=== PATIENT | female | born 1955 | race Caucasian/White ===

== ENCOUNTER 2018-08-08 01:04 | Emergency (ER) | payer BC, SELFPAY ==
[2018-08-08 01:05] VITALS: BP 208/87; PULSE 80; RESP 14; TEMP 36.4; O2SAT 99; BMI 32.1
--- NOTE | 2018-08-08 01:29 | CT_ITS ---
STUDY: CT ABDOMEN AND PELVIS WITHOUT CONTRAST REASON FOR EXAM: Female, 62 years old. Left-sided flank pain. RADIATION DOSAGE (If Supplied By Facility): CTDIvol = ( 15.80 ) mGy, DLP = ( 785.33 ) mGycm TECHNIQUE: Transaxial images were obtained from the dome of the diaphragm to the symphysis pubis without oral contrast, and without intravenous contrast. Sagittal and coronal images were reconstructed. Individualized dose optimization techniques were used for this CT. COMPARISON: None. FINDINGS: The visualized lung bases are unremarkable. The visualized portions of the heart are within normal limits. Normal liver. Normal gallbladder and extrahepatic biliary system. Normal spleen. Normal pancreas. Normal bilateral adrenal glands. Normal right kidney. There is prominence of the left renal collecting system without evidence for hydroureter or radiopaque ureteral calculus. This may be the result of recent passage of a calculus. Small calculus is visible within the urinary bladder. Normal visualized stomach. There is no evidence for dilated bowel, ascites or pneumoperitoneum. Small bowel has a grossly normal appearance. Stool is visible throughout the colon with scattered diverticula. There is non-visualization of the appendix. Normal abdominal aorta. Normal inferior vena cava. Normal retroperitoneum. The urinary bladder has a normal appearance otherwise. Normal visualized uterus. There is a small umbilical hernia containing fat. There are degenerative changes of the lumbar spine. There are degenerative changes of both hips. CT/Abdomen/Pelvis without Cont IMPRESSION: 1. Mild prominence of left renal collecting system with calculus in urinary bladder suggests recent passage of a ureteral calculus. 2. Colonic diverticulosis. Electronically Signed: Yanely Kay MD at 2:52 EDT , Service support ,
--- NOTE | 2018-08-08 01:32 | ED.DCSUM_ITS ---
- ER Visit Summary Date of Service: 08/08/18 Chief Complaint: Left flank pain History of Present Illness: The patient is a 62 F presenting with left flank pain. Patient states this started today. She states yesterday she went to urgent care for a bladder infection. She was given a prescription for Macrobid. She then started having pain in her left lower back today. She has nausea and vomiting. She denies fever. Denies abdominal pain. Denies other complaints Physical Examination: Vitals are stable. Patient is afebrile. Alert no acute distress. HEENT exam is unremarkable. Neck is supple. Lungs are clear and equal bilaterally. Heart is regular rate and rhythm. Abdomen is soft nontender nondistended. No guarding or rebound Back: Mild left CVA tenderness Extremities are unremarkable. Skin is warm and dry. Remainder of exam is unremarkable. Emergency Department Course and Treatment: Patient was given IV fluids, morphine, Zofran. CT flank shows mild prominence of left renal collecting system with calculus in urinary bladder suggests recent passage of a ureteral calculus. Colonic diverticulosis. CBC normal except for white count 13.2. Chemistries showed glucose 161, BUN 20. Urinalysis shows 0-5 white blood cells, 5-10 red blood cells. Patient is advised to continue her antibiotics until complete. On reevaluation she is resting comfortably and is feeling improved. She is given a prescription for Zofran. Advised to follow-up with her primary care physician. Advised to return to the ED for worsening complaints. Disposition: Discharge home Impression: Urolithiasis This note was generated with [employer] dictation software. It may contain incorrect words, spelling, and punctuation that were not noted in review of the chart prior to signing ED Disposition - Plan for ED Patient: Instructions: ED Stone Renal W Colic Prescriptions: Ondansetron [Zofran Odt] 4 mg PO Q8H PRN PRN #10 tablet PRN Reason: Nausea Referrals: Jaden Grady MD [STAFF PHYSICIAN] -
[2018-08-08] MEDS: Ondansetron 4 MG/2 ML Vial IV (01:46)
[2018-08-08] MEDS: Morphine 4 MG/ML Syringe IV (01:47)
[2018-08-08 01:50] LABS: Mucous, Urine 0 SEEN /hpf (<or=2+)
[2018-08-08 01:53] LABS: Absolute Lymphocyte Count 2.13 X10^3/ul (0.83-4.51); Basophil# 0.03 X10^3/uL; Basophil% 0.2 % (0-1); Eosinophil# 0.08 X10^3/uL; Eosinophils% 0.6 % (0-5); Hematocrit 43.3 % (37-47); Hemoglobin 14.1 g/dl (12.0-15.0); Lymphocyte # 2.13 X10^3/ul (4.0); Lymphocyte % 16.1 % (19-41); Mean Corp Hgb Conc 32.6 g/gl (32-36); Mean Corpuscular Volume 82.8 fL (81-99); Mean Platelet Vol. 10.8 fl (6.2-12.0); Monocyte# 0.95 X10^3/uL; Monocyte% 7.2 % (0-10); Neutrophil # 10.02 X10^3/uL (2.7-7.7); Neutrophil % 75.7 % (47-70); Platelet Count 249 K/mm3 (150-450); RBC Distribution Width CV 12.3 % (11.6-14.6); RBC Distribution Width SD 37.1 fl (35.1-43.9); Red Blood Count 5.23 M/mm3 (4.2-5.4); White Blood Count 13.2 K/mm3 (4.4-11.0)
[2018-08-08 01:54] LABS: Glucose, Dipstick 50 mg/dl (Normal); Ketone-Dipstick 5 mg/dl (Negative); Leukocyte Esterase-Dipstick 25 /ul (Negative); Nitrite-Dipstick Positive (Negative); Occult Blood-Urine 50 /ul (Negative); Protein-Dipstick 30 mg/dl (Negative); Urine Clarity Sl. Cloudy (Clear); Urine Urobilinogen 8 mg/dl (Normal)
[2018-08-08 01:55] LABS: Color, Urine SEE COMMENT BELOW (Yellow); POSITIVE COUNT NO; POSITIVE DIFFERENTIAL NO; POSITIVE MORPHOLOGY NO; Urine Bilirubin Dipstick 3 mg/dL (Negative)
[2018-08-08 02:01] LABS: Bacteria RARE /hpf (None Seen); Red Blood Cells-Urine 5-10 SEEN /hpf (0-5); Squamous Epithelial Cells - UA 0-5 SEEN /hpf (5-10); White Blood Cells 0-5 SEEN /hpf (0-5)
[2018-08-08 02:07] LABS: Anion Gap 6 (5-15); BUN 20 mg/dL (7-18); BUN/Creat Ratio 28.5 RATIO (10-20); Chloride 107 mmol/L (98-107); EST Glomerular Filtration Rate 90 mL/min (>60); Est Glom Filt Rate - Afr Amer 109 mL/min (>60); Glucose 161 mg/dL (74-106); Potassium 3.6 mmol/L (3.5-5.1); Sodium Level 140 mmol/L (136-145)
--- NOTE | 2018-08-08 03:20 | ED.DEP ---
ED Disposition - Plan for ED Patient: Instructions: ED Stone Renal W Colic Prescriptions: Ondansetron [Zofran Odt] 4 mg PO Q8H PRN PRN #10 tablet PRN Reason: Nausea Referrals: Jaden Grady MD [STAFF PHYSICIAN] -
[2018-08-08 03:35] VITALS: BP 151/65; PULSE 84; RESP 16; O2SAT 95
== END 2018-08-08 03:36 | disposition home or self-care (01) ==
PROVIDERS: Emergency Provider Emergency Medicine; Family Provider Internal Medicine; PCP Internal Medicine
DX: N21.0 Calculus in bladder (principal); E11.9 Type 2 diabetes mellitus without complications; I10 Essential (primary) hypertension; E78.00 Pure hypercholesterolemia, unspecified; Z79.4 Long term (current) use of insulin; Z79.899 Other long term (current) drug therapy
CPT/HCPCS: 74176; 80048; 81001; 85025; 96361; 96374; 96375; 99283; J7040; A4216; J2405

== ENCOUNTER 2019-12-20 08:37 | Emergency (ER) | payer BC, SELFPAY ==
[2019-12-20 08:37] VITALS: BP 199/96; PULSE 71; RESP 16; TEMP 36.2; O2SAT 99; BMI 32.1
[2019-12-20 08:39] VITALS: BP 199/96; PULSE 71; RESP 16; TEMP 36.2; O2SAT 99
--- NOTE | 2019-12-20 08:49 | CT_ITS ---
STUDY: CT ABDOMEN AND PELVIS WITHOUT CONTRAST REASON FOR EXAM: Female, 64 years old. ABD PAIN/VOIMITING/NAUSEA/HEMATURIA. right flank pain RADIATION DOSAGE (If Supplied By Facility): CTDIvol = ( 13.49 ) mGy, DLP = ( 637.00 ) mGycm TECHNIQUE: Transaxial images were obtained from the dome of the diaphragm to the symphysis pubis without oral contrast, and without intravenous contrast. Sagittal and coronal images were reconstructed. Individualized dose optimization techniques were used for this CT. COMPARISON: None. FINDINGS: The visualized lung bases are unremarkable. The visualized portions of the heart are within normal limits. Normal liver. Normal gallbladder and extrahepatic biliary system. Normal spleen. Normal pancreas. Normal bilateral adrenal glands. Moderate right hydronephrosis and hydroureter due to 5 mm stone in distal right ureter at ureterovesical junction. Normal left kidney. Normal visualized stomach. Normal small intestine. There are multiple colonic diverticula consistent with diverticulosis. The appendix is visualized and appears normal. Normal abdominal aorta. Normal inferior vena cava. Normal retroperitoneum. Normal urinary bladder. Normal abdominal wall. Normal osseous structures. CT/Abdomen/Pelvis without Cont IMPRESSION: Moderate right hydronephrosis and hydroureter due to 5 mm stone in distal right ureter at ureterovesical junction. Electronically Signed: Lisa Hagen, at 9:54 EDT Tel , Service support ,
--- NOTE | 2019-12-20 08:50 | ED.VIS.GEN ---
History of Present Illness Chief Complaint: Abd Pain Informant: Patient Narrative: Patient presents with abdominal pain, hematuria, and nausea vomiting. Patient had bunion surgery on Monday. She states that she was put on Keflex and did experience some vomiting and some mid abdominal pain. She talk to her doctor due to multiple antibiotic allergies and was advised to stop the medication. She stopped it and states that the nausea vomiting did get better. However during this past night she developed pain in the suprapubic region and noticed some hematuria. Dry heaving resumed. No history of abdominal surgery or bowel obstruction or pancreatitis. She denies any prior history of diverticulitis. Normal bowel movements. 2019 was diagnosed with a kidney stone. She states her pain gets better with ambulation. Past Medical History - Allergies and Home Meds Allergies/Adverse Reactions: Allergies MULTIPLE ATB Adverse Reaction (Uncoded 12/20/19 08:39) Nausea Primary Care Physician: Terri Mancia MD [Primary Care Provider] - Smoking Status: Never smoker Review of Systems General: Denies: Chills, Fever, Sweats Eyes: Denies: Visual changes - bilaterally, Diplopia ENT: Denies: Rhinorrhea, Sore throat Cardiovascular: Denies: Chest pain, Palpitations Respiratory: Denies: Dyspnea, Cough, Dyspnea on exertion Gastrointestinal: Reports: Abdominal pain, Nausea, Vomiting. Denies: Diarrhea, Constipation, Melena, Hematochezia Genitourinary: Reports: Hematuria. Denies: Dysuria, Frequency Musculoskeletal: Denies: Back pain, Extremity Pain Skin: Denies: Rash, Wounds Neurological: Denies: Headache, Weakness, Numbness Physical Exam Vital Signs/Narrative: Vital Signs Temp Pulse Resp BP Pulse Ox 12/20/19 08:37 97.2 F L 71 16 199/96 H 99 Inital Vital Signs reviewed: Yes General: Well nourished, Well developed, Obese, No Acute Distress Head: Normocephalic, Atraumatic Eyes: Perrl, EOMI ENT: Moist mucous membranes, No rhinorrhea Neck: Supple, Nontender Cardiovascular: Regular rate, Regular rhythm, No murmurs Respiratory: No distress, CTA bilaterally, Chest nontender Abdomen: Soft, Nontender, Nondistended, Normal bowel sounds Back: Nontender, Normal Inspection Extremities: Nontender, No edema Skin: Normal color, No rash Neurological: Alert, Oriented x3, Cranial nerves II-XII grossly intact, Normal Strength, Normal Sensation Psychological: Normal affect, Normal Mood Diagnostic/Tx/Re-eval Clinical Impression(s) from Imaging Studies Abdomen/Pelvis CT 12/20/19 08:49 IMPRESSION: Moderate right hydronephrosis and hydroureter due to 5 mm stone in distal right ureter at ureterovesical junction. Electronically Signed: Lisa Hagen, at 9:54 EDT Tel , Service support , Laboratory Last Values WBC 10.3 K/mm3 (4.4-11.0) 12/20/19 08:54 RBC 5.22 M/mm3 (4.2-5.4) 12/20/19 08:54 Hgb 14.7 g/dL (12.0-15.0) 12/20/19 08:54 Hct 44.7 % (37-47) 12/20/19 08:54 MCV 85.6 fL (81-99) 12/20/19 08:54 MCH 28.2 pg (27.0-32.0) 12/20/19 08:54 MCHC 32.9 g/dL (32-36) 12/20/19 08:54 RDW Std Deviation 37.7 fl (35.1-43.9) 12/20/19 08:54 RDW Coeff of [place] 12.2 % (11.6-14.6) 12/20/19 08:54 Plt Count 272 K/mm3 (150-450) 12/20/19 08:54 MPV 10.9 fl (6.2-12.0) 12/20/19 08:54 Immature Gran % (Auto) 0.400 % (0.0-0.9) 12/20/19 08:54 Neut % (Auto) 78.8 % (47-70) H 12/20/19 08:54 Lymph % (Auto) 14.0 % (19-41) L 12/20/19 08:54 [place] % (Auto) 6.1 % (0-10) 12/20/19 08:54 Eos % (Auto) 0.4 % (0-5) 12/20/19 08:54 Baso % (Auto) 0.3 % (0-1) 12/20/19 08:54 Absolute Neuts (auto) 8.1 X10^3/uL (2.0-7.7) H 12/20/19 08:54 Absolute Lymphs (auto) 1.44 X10^3/uL (0.83-4.51) 12/20/19 08:54 Nucleated RBC % 0 % (0-5) 12/20/19 08:54 Sodium 140 mmol/L (136-145) 12/20/19 08:54 Potassium 3.6 mmol/L (3.5-5.1) 12/20/19 08:54 Chloride 106 mmol/L (98-107) 12/20/19 08:54 Carbon Dioxide 26.0 mmol/L (21.0-32.0) 12/20/19 08:54 Anion Gap 8 (5-15) 12/20/19 08:54 BUN 26 mg/dL (7-18) H 12/20/19 08:54 Creatinine 0.81 mg/dL (0.55-1.02) 12/20/19 08:54 Estim Creat Clear Calc 62.18 ml/min 12/20/19 08:54 Est GFR (MDRD) Af Amer 92 mL/min (>60) 12/20/19 08:54 Est GFR (MDRD) Non-Af 76 mL/min (>60) 12/20/19 08:54 BUN/Creatinine Ratio 32.0 RATIO (10-20) H 12/20/19 08:54 Glucose 216 mg/dL (74-106) H 12/20/19 08:54 Calcium 9.6 mg/dL (8.5-10.1) 12/20/19 08:54 Total Bilirubin 0.80 mg/dL (0.20-1.00) 12/20/19 08:54 AST 18 U/L (15-37) 12/20/19 08:54 ALT 24 U/L (13-56) 12/20/19 08:54 Alkaline Phosphatase 137 U/L (45-117) H 12/20/19 08:54 Total Protein 8.2 g/dL (6.4-8.2) 12/20/19 08:54 Albumin 3.7 g/dL (3.2-5.0) 12/20/19 08:54 Globulin 4.5 g/dL (2.2-4.2) H 12/20/19 08:54 Albumin/Globulin Ratio 0.8 RATIO (0.9-2.4) L 12/20/19 08:54 Lipase 56 U/L (73-393) L 12/20/19 08:54 Urine Color Yellow (Yellow) 12/20/19 09:15 Urine Clarity Clear (Clear) 12/20/19 09:15 Urine pH 5.0 (5.0 - 8.0) 12/20/19 09:15 Ur Specific [place] 1.025 (1.002-1.030) 12/20/19 09:15 Urine Protein 100 mg/dl (Negative) H 12/20/19 09:15 Urine Glucose (UA) 250 mg/dl (Normal) H 12/20/19 09:15 Urine Ketones 150 mg/dl (Negative) H 12/20/19 09:15 Urine Occult Blood 250 /ul (Negative) H 12/20/19 09:15 Urine Nitrite Negative (Negative) 12/20/19 09:15 Urine Bilirubin Negative mg/dL (Negative) 12/20/19 09:15 Urine Urobilinogen Normal mg/dl (Normal) 12/20/19 09:15 Ur Leukocyte Esterase 25 /ul (Negative) H 12/20/19 09:15 Urine RBC 5-10 SEEN /hpf (0-5) 12/20/19 09:15 Urine WBC 0 SEEN /hpf (0-5) 12/20/19 09:15 Ur Squamous Epith Cells 0 SEEN /hpf (5-10) 12/20/19 09:15 Urine Bacteria 0 SEEN /hpf (None Seen) 12/20/19 09:15 Urine Mucus 0 SEEN /hpf (<or=2+) 12/20/19 09:15 - Medical Decision Making Patient received morphine Zofran and IV fluids. CT reveals a 5 mm UVJ stone with associated hydronephroureter. No evidence of infection and creatinine is normal. Patient overall feels better. She will be discharged home on Percocet and Zofran. She is to follow-up with urology return if worsening or concerns patient is comfortable with the plan. All questions answered at the bedside to the satisfaction of the patient. ED Disposition - Plan for ED Patient: Disposition: Home or Assisted Living Diagnosis: Ureterolithiasis, Renal colic Instructions: ED Renal Stone w Colic Prescriptions: Oxycodone HCl/Acetaminophen [Percocet 5/325] 1 tablet PO Q6H PRN PRN 5 Days #20 tablet PRN Reason: Pain Transmission Status: Sent to [facility] Ondansetron [Zofran Odt] 4 mg PO Q6H PRN PRN #10 tab PRN Reason: Nausea Transmission Status: Pending to [facility] Referrals: Sandoval Kearney MD [STAFF PHYSICIAN] - (These call and schedule an appointment. Inform them that you were diagnosed with a 5 mm kidney stone on the right side)
[2019-12-20] MEDS: 0.9% Normal Saline 1,000 ML 1000 ML IV (08:58)
[2019-12-20] MEDS: Ondansetron 4 MG/2 ML Vial IV (09:00)
[2019-12-20] MEDS: Ketorolac 30 MG/ML Syringe IV (09:00)
[2019-12-20 09:02] LABS: Absolute Lymphocyte Count 1.44 X10^3/uL (0.83-4.51); Absolute Neutrophil Count 8.1 X10^3/uL (2.0-7.7); Basophil# 0.03 X10^3/uL; Basophil% 0.3 % (0-1); Eosinophil# 0.04 X10^3/uL; Eosinophils% 0.4 % (0-5); Hematocrit 44.7 % (37-47); Hemoglobin 14.7 g/dL (12.0-15.0); Lymphocyte # 1.44 X10^3/ul (4.0); Mean Corp Hgb Conc 32.9 g/dL (32-36); Mean Corpuscular Hgb 28.2 pg (27.0-32.0); Mean Corpuscular Volume 85.6 fL (81-99); Mean Platelet Vol. 10.9 fl (6.2-12.0); Monocyte# 0.63 X10^3/uL; Monocyte% 6.1 % (0-10); NRBC Flagged by Analyzer 0 % (0-5); Neutrophil # 8.13 X10^3/uL (2.7-7.7); Neutrophil % 78.8 % (47-70); Platelet Count 272 K/mm3 (150-450); RBC Distribution Width CV 12.2 % (11.6-14.6); RBC Distribution Width SD 37.7 fl (35.1-43.9); Red Blood Count 5.22 M/mm3 (4.2-5.4); White Blood Count 10.3 K/mm3 (4.4-11.0)
[2019-12-20] MEDS: Morphine 4 MG/ML Syringe IV (09:02)
[2019-12-20 09:16] LABS: ALB/GLOB Ratio 0.8 RATIO (0.9-2.4); AST(SGOT) 18 U/L (15-37); Alanine Aminotransfer ALT/SGPT 24 U/L (13-56); Albumin, Serum 3.7 g/dL (3.2-5.0); Alkaline Phosphatase 137 U/L (45-117); Anion Gap 8 (5-15); BUN 26 mg/dL (7-18); Calcium,Total 9.6 mg/dL (8.5-10.1); Chloride 106 mmol/L (98-107); Creatinine, Serum 0.81 mg/dL (0.55-1.02); EST Glomerular Filtration Rate 76 mL/min (>60); Est Glom Filt Rate - Afr Amer 92 mL/min (>60); Estimated Creatinine Clearance 62.18 ml/min; Globulin 4.5 g/dL (2.2-4.2); Glucose 216 mg/dL (74-106); Lipase 56 U/L (73-393); Potassium 3.6 mmol/L (3.5-5.1); Protein, Total 8.2 g/dL (6.4-8.2); Sodium Level 140 mmol/L (136-145)
[2019-12-20 09:24] LABS: Bacteria 0 SEEN /hpf (None Seen); Mucous, Urine 0 SEEN /hpf (<or=2+); Squamous Epithelial Cells - UA 0 SEEN /hpf (5-10); White Blood Cells 0 SEEN /hpf (0-5)
[2019-12-20 09:27] LABS: Color, Urine Yellow (Yellow); Glucose, Dipstick 250 mg/dl (Normal); Leukocyte Esterase-Dipstick 25 /ul (Negative); Nitrite-Dipstick Negative (Negative); Occult Blood-Urine 250 /ul (Negative); Protein-Dipstick 100 mg/dl (Negative); Specific Gravity, Urine 1.025 (1.002-1.030); Urine Bilirubin Dipstick Negative (Negative); Urine Clarity Clear (Clear); Urine Urobilinogen Normal (Normal)
[2019-12-20 09:30] LABS: Ketone-Dipstick 150 mg/dl (Negative)
[2019-12-20 09:33] LABS: Red Blood Cells-Urine 5-10 SEEN /hpf (0-5)
[2019-12-20 10:41] VITALS: BP 140/72; PULSE 74; RESP 18; O2SAT 98
== END 2019-12-20 10:44 | disposition home or self-care (01) ==
PROVIDERS: Emergency Provider Emergency Medicine; PCP Internal Medicine
DX: N20.1 Calculus of ureter (principal); N23 Unspecified renal colic; E66.9 Obesity, unspecified
CPT/HCPCS: 74176; 80053; 81001; 83690; 85025; 96361; 96374; 96375; 99284; J7030; A4216; J2405

== ENCOUNTER → 2020-01-27 10:26 | Outpatient (CLI) | payer BC, SELFPAY ==
--- NOTE | 2020-01-27 10:28 | RAD_ITS ---
HISTORY: right side stone, pt thinks she passed it ADDITIONAL HISTORY: None. COMPARISON: CT 12/20/2019 EXAMINATION/TECHNIQUE: XR Abdomen 1 View Number of images including paperwork: 2 FINDINGS: FREE AIR: None detected. BOWEL GAS PATTERN: Nonobstructive. CALCIFICATIONS: No definite urinary tract calculi. ORGANS: No evidence of organomegaly. SOFT TISSUES: Unremarkable. BONES: No acute skeletal findings. LOWER CHEST: Unremarkable visible portions. DEVICES: None. RAD/Abdomen Single View IMPRESSION: No acute abdominal abnormality is radiographically apparent. at 0622 Reported and signed by: Myrna Casper MD Electronically Signed: Myrna Casper MD at 6:22 EDT Tel , Service support ,
== END ==
PROVIDERS: PCP Internal Medicine; Referring Provider Nurse Practitioner Adult Health; Visit Provider Nurse Practitioner Adult Health
DX: N20.1 Calculus of ureter (principal)
CPT/HCPCS: 74018

== ENCOUNTER → 2024-12-03 | Outpatient (CLI) | payer MEDICARE, OTHER, SELFPAY ==
--- NOTE | 2024-12-03 09:04 | NM_ITS ---
PROCEDURE: GASTRIC EMPTYING STUDY - 4 HR 12/03/2024 REASON FOR EXAM: FREQUENT HEARTBURN, CHRONIC NAUSEA COMPARISON: None. TECHNIQUE: The patient ingested a standard solid meal 2 eggs, 2 slices of bread, and 2 pads of butter.. There was no vomiting postprandially. Anterior and posterior planar images of the upper abdomen were obtained for a total of 231 minutes. Regions of interest were drawn, and a geometric mean was used to calculate a [id number]. Medications taken in the past 24 hours that may affect gastric emptying: None RADIOPHARMACEUTICAL: Technetium 99 M sulfur colloid DOSE 1.1mCi with the solid meal. FINDINGS: During the time of imaging, gastroesophageal reflux was not visualized. Linear fit gastric emptying half-time of 118.15 minutes. Raw data half-time 97.33 minutes. Percent activity remaining in stomach: 1 hour 72 % (normal 37-90%) 2 hours: 42 % (normal 30-60%) 4 hours: 6 % (normal 0-10%) NM/Gastric Emptying Study - 4 HR IMPRESSION: Normal solid phase gastric emptying half-time. Reading Location: [place] [id number]
== END | disposition home or self-care (01) ==
LOC: NM 09:00
PROVIDERS: PCP Internal Medicine
DX: R11.0 Nausea (principal); K21.9 Gastro-esophageal reflux disease without esophagitis
CPT/HCPCS: 78264; A9541